=== PATIENT | male | born 1965 | race Caucasian/White ===

== ENCOUNTER 2017-08-28 00:12 | Emergency (ER) | payer SELFPAY ==
[~2017-08-28] VITALS: Ht 167.6 cm; Wt 75.0 kg
[2017-08-28 00:57] LABS: HEMATOCRIT. 26.2 % (42.0-52.0); HEMOGLOBIN. 9.3 g/dL (14.0-18.0); MEAN CORPUSCULAR HEMOGLOBIN 40.6 pg (28.0-32.0); MEAN CORPUSCULAR VOLUME 114.3 fL (80.0-94.0); MEAN PLATELET VOLUME 9.5 fl (7.4-10.4); RED BLOOD CELL COUNT 2.29 mill/uL (4.7-6.1); RED CELL DISTRIBUTION WIDTH 13.9 % (11.6-14.6)
[2017-08-28 01:11] LABS: INR 2.9
[2017-08-28 01:16] LABS: PLATELET 46 x1000/uL (130-400)
[2017-08-28 01:17] LABS: CARBON DIOXIDE 20 mEq/L (21-32)
[2017-08-28 01:22] LABS: CHLORIDE 95 mEq/L (98-107)
[2017-08-28 01:26] LABS: AMMONIA 186 uMol/L (<32)
[2017-08-28] MEDS ORDERED: DEXTROSE 50% WATER 50ML SYRINGE IV ONE ×2 (01:30→01:35)
[2017-08-28] MEDS ORDERED: SUCCINYLCHOLINE CHLORIDE 200MG/10ML VIAL IV ONE ×2 (01:30→12:16)
[2017-08-28] MEDS ORDERED: ETOMIDATE 2MG/ML 10ML VIAL IV ONE ×2 (01:30→12:16)
[2017-08-28] MEDS ORDERED: PROPOFOL 10MG/ML 100ML 100 ML IV ONE (01:30)
[2017-08-28 02:05] VITALS: BP 117/79
[2017-08-28 03:07] LABS: PLATELET ESTIMATE MARKEDLY DECREASED
== END 2017-08-28 01:11 | disposition short-term general hospital (02) ==
LOC: ER 00:12 → CANBEDREQ 04:17
DX: S06.5X9A Traumatic subdural hemorrhage with loss of consciousness of unspecified duration, initial encounter (principal); T79.7XXA Traumatic subcutaneous emphysema, initial encounter; S06.6X9A Traumatic subarachnoid hemorrhage with loss of consciousness of unspecified duration, initial encounter; J32.9 Chronic sinusitis, unspecified; S02.2XXA Fracture of nasal bones, initial encounter for closed fracture; K74.60 Unspecified cirrhosis of liver; X58.XXXA Exposure to other specified factors, initial encounter; Y93.9 Activity, unspecified; Y92.9 Unspecified place or not applicable
CPT/HCPCS: 31500; 36415; 51702; 70450; 70486; 71010; 80053; 82140; 83605; 85025; 85610; 87040; 93005; 94002; 99291; J0330; J2704; J3490; J7030; Z7610